=== PATIENT | female | born 1995 | race Two or more races ===

== ENCOUNTER 2020-08-29 11:49 | Emergency (ER) | payer OTHER ==
[~2020-08-29] VITALS: Ht 152.4 cm; Wt 45.4 kg
[2020-08-29] MEDS ORDERED: PRENA1 TRUE CO1 EACH (12:01)
[2020-08-29] MEDS ORDERED: PEPCID AC20 MG PO (16:46)
[2020-08-29] MEDS ORDERED: METOCLOPRAMIDE10 MG PO (16:46)
[2020-08-29] MEDS ORDERED: CARAFATE1 GM PO (16:46)
== END 2020-08-29 16:53 | disposition home or self-care (01) ==
LOC: ER 11:49
DX: K29.60 Other gastritis without bleeding (principal)

== ENCOUNTER 2020-11-23 12:59 | Emergency (ER) | payer OTHER ==
[~2020-11-23] VITALS: Ht 152.4 cm; Wt 55.8 kg
[~2020-11-23 12:59] MED LIST: CARAFATE1 GM PO; METOCLOPRAMIDE10 MG PO; PEPCID AC20 MG PO; PRENA1 TRUE CO1 EACH
== END 2020-11-23 16:27 | disposition home or self-care (01) ==
LOC: ER 12:59
DX: O35.0XX1 Maternal care for (suspected) central nervous system malformation in fetus, fetus 1 (principal); O35.3XX1 Maternal care for (suspected) damage to fetus from viral disease in mother, fetus 1; O98.512 Other viral diseases complicating pregnancy, second trimester; Z3A.26 26 weeks gestation of pregnancy

== ENCOUNTER 2021-03-04 10:16 | Outpatient (CLI) | payer OTHER | END 2021-03-04 13:20 | disposition home or self-care (01) | LOC: OBS/DEL 10:16 | PROVIDERS: ATTEND Obstetrics & Gynecology | DX: O48.0 Post-term pregnancy (principal); O26.843 Uterine size-date discrepancy, third trimester; O35.0XX0 Maternal care for (suspected) central nervous system malformation in fetus, not applicable or unspecified; Z3A.40 40 weeks gestation of pregnancy ==

== ENCOUNTER 2021-03-05 21:23 | Inpatient (IN) | payer OTHER ==
[~2021-03-05] VITALS: Ht 152.4 cm; Wt 63.5 kg
== END 2021-03-08 15:26 | disposition home or self-care (01) | DRG 768 ==
LOC: LDR 21:23 → OB/GYN 21:23
PROVIDERS: ADMIT Obstetrics & Gynecology; ATTEND Obstetrics & Gynecology
PROC: 10E0XZZ Delivery of Products of Conception, External Approach (ICD-10-PCS; principal; 2021-03-06)
PROC: 0DQR0ZZ Repair Anal Sphincter, Open Approach (ICD-10-PCS; 2021-03-06)
PROC: 4A1HXFZ Monitoring of Products of Conception, Cardiac Rhythm, External Approach (ICD-10-PCS; 2021-03-06)
DX: O48.0 Post-term pregnancy (principal); Z37.0 Single live birth; O70.20 Third degree perineal laceration during delivery, unspecified; O99.824 Streptococcus B carrier state complicating childbirth; Z86.16 Personal history of COVID-19; Z3A.40 40 weeks gestation of pregnancy